=== PATIENT | male | born 1985 | race American Indian/Alaskan Native ===

== ENCOUNTER 2018-06-10 17:48 | Emergency (ER) | payer OTHER ==
[2018-06-10] MEDS ORDERED: MOTRIN PO ONE (23:24)
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
[2018-06-10 23:38] VITALS: BP 142/91
== END 2018-06-10 23:35 | disposition home or self-care (01) ==
LOC: ED 17:48
DX: M54.5 Low back pain (principal); F17.200 Nicotine dependence, unspecified, uncomplicated; Z90.89 Acquired absence of other organs; V89.2XXA Person injured in unspecified motor-vehicle accident, traffic, initial encounter; Y93.89 Activity, other specified; Y92.410 Unspecified street and highway as the place of occurrence of the external cause; Y99.8 Other external cause status
CPT/HCPCS: 99282